=== PATIENT | male | born 1965 | race African-American/Black ===

== ENCOUNTER 2019-02-21 08:32 | Outpatient (CLI) | payer BC ==
[~2019-02-21] VITALS: Ht 180.3 cm; Wt 91.4 kg
--- NOTE | ~2019-02-21 | HEMODYNAMI ---
PATIENT:VIANEY HARGROVE MEDICAL RECORD: [id number] : 65 LOCATION:[facility] ADMISSION DATE: 02/21/19 Generatedon:02/21/201911:01 Patient name: VIANEY HARGROVE Patient #: [id number] SSN: D OB: 1965 Date of study: 02/21/2019 Page: Of Hemodynamic Procedure Report Patient Data Patient Demographics Procedure consent was obtained First Name: VIANEY Gender: Male Last Name: BEENA : 1965 Patient #: [id number] Age: 54 year(s) Race: Black Additional ID: [id number] Contact details Address: [place] [address] State: [place] City: [place] Zip code: [address] Past Medical History Allergies Allergen Reaction Date Comments Reported Other allergy 02/21/2019 [facility] Admission Admission Data Admission Date: 02/21/2019 Admission Time: 8:32 Arrival Date: 02/21/2019 Arrival Time: 0:00 Admit Source: Other Insurance Payor: Private health insurance [facility] #: [id number] Height (in.): 70.87 BSA: 2.11 (m2) Height (cm.): 180 BMI: 28.09 (kg/m2) Weight (lbs.): 200.62 Weight (kg.): 91 Lab Results Lab Result Date: 02/21/2019 Lab Result Time: 0:00 Biochemistry Name Units Result Min Max BUN mg/dl 17 --(---*)-- 7 18 Creatinine mg/dl 0.9 --(-*--)-- 0.6 1.3 eGFR ml/min 90 --(*---)-- 90 120 AM CBC Name Units Result Min Max Hemoglobin g/dl 14.9 --(-*--)-- 13.5 17.5 Procedure Procedure Types Cath Procedure Diagnostic Procedure LHC LH w/Coronaries Sedation Charges Moderate Sedation up to 15 minutes Procedure Description Procedure Date Procedure Date: 02/21/2019 Procedure Start Time: 10:43 Procedure End Time: 10:58 Procedure Staff Name Function Fletcher Kennedy MD Performing Physician Yeimy Rivers RT Monitor Josefina Henry RT Monitor Jenifer Dwyer RN Nurse Sugar Ugarte RT Scrub Indication Angina Procedure Data Cath Procedure Fluoroscopy Diagnostic fluoroscopy Total fluoroscopy Time: 2.5 time: 2.5 min min Diagnostic fluoroscopy Total fluoroscopy dose: 311 dose: 311 mGy mGy Contrast Material Contrast Material Type Amount (ml) Isovue 300 38 Entry Location Entry Primary Successful Side Size Upsize Upsize Entry Closure Morejon ccessful Closure Location (Fr) 1 (Fr) 2 (Fr) Remarks Device Remarks Radial Right 6 Fr Mechanical artery Short Compression Estimated blood loss: 5 ml Diagnostic catheters Device Type Used For End Catheter Placement DIAGNOSTIC Leroy 110cm 5 Procedure Fr catheter ([id number]) DIAGNOSTIC AR2 MOD 5 Fr Procedure catheter ([id number]) Procedure Complications No complications Procedure Medications Medication Administration Route Dosage Oxygen etCO2 Nasal cannula 2 l/min Lidocaine 2% added to field 20 Heparin Flush Bag added to field 2 bags (1000units/500ml NS) 0.9% NaCl I.V. 100 ml/hr Radial Cocktail I.A. 1 syringe (Verapamil 2mg/Nitro 400mcg/Heparin 1500units) Versed I.V. 2 mg Fentanyl I.V. 100 mcg Versed I.V. 1 mg Fentanyl I.V. 50 mcg Mechanical Ventricular Support IABP: Other mechanical ventricular support: Hemodynamics Rest BSA: 2.11 (m2) HGB: 14.9 (g/dl) O2 Consumption: Estimated: 235.6 (ml/min) O2 Con sumption indexed: Estimated:111.66 (ml/min/m) Heart Rate: 51 (bpm) Snapshots Pre Cath Intra NCS Post Cath Vital Signs Time Heart Resp SPO2 etCO2 NIBP (mmHg) Rhythm Pain Sedation Rate (ipm) (%) (mmHg) Status Level (bpm) 10:33:35 52 19 97 39.8 138/82(99) NSR 0 (11) 10(A) , No pain 10:37:39 53 18 96 39.8 120/79(101) NSR 0 (11) 10(A) , No pain 10:41:53 51 17 95 39.8 131/72(106) NSR 0 (11) 9(A) , No pain 10:46:52 50 16 95 40.6 135/75(93) NSR 0 (11) 9(A) , No pain 10:51:04 57 16 93 39.8 107/65(86) NSR 0 (11) 10(A) , No pain 10:55:14 52 7 95 40.6 125/71(98) NSR 0 (11) 10(A) , No pain Medications Time Medication Route Dose Verified Delivered Reason Notes Effectiveness by by 10:33:34 Oxygen etCO2 2 l/min Fletcher Burgess used for Nasal Brent Dwyer RN procedure cannula 10:33:41 Lidocaine 2% added 20ml Fletcher Bynum for local to vial Brent Kennedy MD anesthetic field 10:33:47 Heparin Flush added 2 bags Fletcher Bynum used for Bag to Brent Kennedy MD procedure (1000units/500ml field NS) 10:33:59 0.9% NaCl I.V. 100 Fletcher Burgess Per ml/hr Brent Dwyer RN physician 10:37:28 Versed I.V. 2 mg Fletcher Burgess for sedation Brent Dwyer RN 10:37:35 Fentanyl I.V. 100 mcg Fletcher Burgess for sedation Brent Dwyer RN 10:46:40 Radial Cocktail I.A. 1 Fletcher Bynum for (Verapamil syringe Brent Kennedy MD vasodilation 2mg/Nitro 400mcg/Heparin 1500units) 10:49:01 Versed I.V. 1 mg Fletcher Burgess for sedation Brent Dwyer RN 10:49:05 Fentanyl I.V. 50 mcg Fletcher Burgess for sedation Brent Dwyer RN Procedure Log Time Note 10:15:31 Diagnostic Cath Status : Elective 10:17:00 Indication : Angina 10:17:07 Admit Source: Other 10:17:13 ACC Patient presents with Stable Angina CCS Anginal Class 1--Ordinary physical activity does not cause angina, angina occurs with strenuos, rapid, or prolonged activity.. 10:17:19 Procedure Status Elective Heart Cath (OP). 10:17:23 Jenifer Dwyer RN sent for patient. Start room use. 10:17:26 Time tracking: Regular hours (M-F 7:00 - 5:00) 10:17:32 Plan of Care:Hemodynamics will remain stable., Cardiac rhythm will remain stable., Comfort level will be maintained., Respiratory function will remain adequate., Patient/ family verbilizes understanding of procedure., Procedure tolerated without complication., Recovers from procedure without complications.. 10::31 Lab Result : eGFR AM 90 ml/min 10::31 Lab Result : Hemoglobin 14.9 g/dl 10:: Lab Result : BUN 17 mg/dl 10:: Lab Result : Creatinine 0.9 mg/dl 10::46 Arrival Date: 02/21/2019 12:00:00 AM 10:21:27 Insurance Payor : Private health insurance 10:21:39 Patient Height : 70.87 inches 10::46 Patient Weight : 200.62 lbs 10:22:11 IABP : 10:22:12 Other mechanical ventricular support: 10:23:49 Informed consent obtained and on chart 10:24:06 Patient received from Pre/Post Procedure Room to CCL 1 Alert and oriented. Tansferred to table in Supine position. 10:24:09 Warm blankets applied, and milind hugger turned on for patient comfort. 10:24:10 Correct patient and procedure confirmed by team. 10:24:14 ECG and BP/O2 sat monitors applied to patient. 10:32:30 Vital chart was started 10:32:56 Baseline sample Acquired. 10:33:13 Rhythm: sinus bradycardia 10:33:17 Full Disclosure recording started 10:33:18 - 10:33:26 H&P Date Dictated: 02/21/2019 H&P Addendum completed by physician on da y of procedure. (MUST COMPLETE FOR ALL OUTPATIENTS), New H&P dictated by physician.. 10:33:29 Pre-procedure instructions explained to patient. 10:33:30 Pre-op teaching completed and patient verbalized understanding. 10:33:34 Oxygen 2 l/min etCO2 Nasal cannula was administered by Jenifer Dwyer RN; used for procedure; Verbal order read back and verified. 10:33:41 Lidocaine 2% 20ml vial added to field was administered by Fletcher Kennedy MD; for local anesthetic; Verbal order read back and verified. 10:33:46 Family in waiting room. 10:33:47 Heparin Flush Bag (1000units/500ml NS) 2 bags added to field was administered by Fletcher Kennedy MD; used for procedure; Verbal order read back and verified. 10:33:50 Patient NPO since Midnight. 10:33:59 0.9% NaCl 100 ml/hr I.V. was administered by Jenifer Dwyer RN; Per physician; Verbal order read back and verified. 10:34:05 Patient allergic to Other allergySHRIMP 10:34:11 Is the patient allergic to Iodine/contrast media? No. 10:34:14 Was the patient premedicated? Yes 10:34:17 Is patient on blood thinner?No 10:34:21 Patient diabetic? No. 10:34:23 If diabetic: On Metformin? No 10:34:27 ----Pre-sedation anethsthesia assessment.---- 10:34:34 Snore? No 10:34:36 Sleep apnea? No 10:34:40 Deviated septum? No 10:34:42 Opens mouth fully? Yes 10:34:44 Sticks out tongue? Yes 10:34:58 Airway obstruction? Yes ASTHMA 10:35:02 Dentures? No ? 10:35:26 Modified Glen's test Ulnar < 7 seconds 10:35:44 Patient pain scale 0/10 ?. 10:35:55 IV patent on arrival in left hand with 0.9% NaCl at KVO. 10:36:01 Pre procedure: right dorsailis pedis pulse 2+ Normal; easily identifiable; not easily obliterated 10:36:06 Pre procedure: left dorsailis pedis pulse 2+ Normal; easily identifiable; not easily obliterated 10:36:18 Lab results completed and on chart. 10:36:29 Right Radial & Right Groin area was prepped with chlora-prep and draped in sterile fashion 10:36:32 Alarms reviewed by R. N. 10:36:34 Sharps counted by scrub and verified by R.N. 10:36:39 Physician arrived 10:36:40 --------ALL STOP TIME OUT------ 10:36:40 Final Timeout: patient, procedure, and site verified with staff and physician. All members of the team are in agreement. 10:36:43 Right Radial & Right Groin site verified by team. 10:36:49 Fire Safety Assessment: A--An alcohol-based skin anteseptic being used preoperatively., C--Open oxygen or nitrous oxide is being used., D--An ESU, laser, or fiber-optic light is being used. 10:37:03 Physical assessment completed. ASA score P 2 - A patient with mild systemic disease as per Fletcher Kennedy MD. 10:37:17 1) 90+ Normal kidney functon but urine findings or structural abnormalities or genetic trait point to kidney disease. 10:37:25 Maximum allowable contrast dose (3.7 X eGFR X 0.75)250 ml. 10:37:28 Versed 2 mg I.V. was administered by Jenifer Dwyer RN; for sedation; Verbal order read back and verified. 10:37:31 Sedation plan: IV Moderate Sedation Medication:Versed, Fentanyl 10:37:35 Fentanyl 100 mcg I.V. was administered by Jenifer Dwyer RN; for sedation; Verbal order read back and verified. 10:38:35 Use device set Radial Dx or PCI 10:38:38 ACIST Syringe (12217) opened to sterile field. 10:38:39 Medline Cath Pack ([id number]) opened to sterile field. 10:38:39 Bag Decanter () opened to sterile field. 10:38:40 ACIST Hand Control (90719) opened to sterile field. 10:38:41 ACIST Manifold (99725) opened to sterile field. 10:38:42 Tegaderm 4 x 4 (1626W) opened to sterile field. 10:38:45 MBrace Wrist Support ([id number]) opened to sterile field. 10:38:49 EMERALD Guide Wire (625-785) opened to sterile field. 10:38:50 SHEATH 6FR RAIN (9797621) opened to sterile field. 10:39:51 Zero performed for pressure channel P1 10:40:57 ACCPatient has been prescribed/administered the following anti-anginal medication within the last 2 weeks: None 10:43:42 Procedure started. 10:43:50 Local anesthetic to right radial artery with Lidocaine 2% by Fletcher Kennedy MD.INITIAL ACCESS ONLY 10:44:57 A 6 Fr Short sheath was inserted into the Right Radial artery 10:45:58 A DIAGNOSTIC Leroy 110cm 5 Fr catheter ([id number]) was advanced over the wire and used for Procedure. 10:46:40 Radial Cocktail (Verapamil 2mg/Nitro 400mcg/Heparin 1500units) 1 syring e I.A. was administered by Fletcher Kennedy MD; for vasodilation; Verbal order read back and verified. 10:47:33 LV angiography performed. 10:47:45 LV gram done using KEENAN 10:47:51 Injector settings: Ml/sec: 5, Volume: 15, 10:47:58 EF : 60 % 10:48:33 LCA angiography performed. 10:49:01 Versed 1 mg I.V. was administered by Jenifer Dwyer RN; for sedation; Verbal order read back and verified. 10:49:05 Fentanyl 50 mcg I.V. was administered by Jenifer Dwyer RN; for sedation; Verbal order read back and verified. 10:49:31 Injector settings: Ml/sec: 3, Volume: 5, 10:50:15 RCA angiography performed. 10:50:28 Catheter removed. 10:50:53 A DIAGNOSTIC AR2 MOD 5 Fr catheter ([id number]) was advanced over the wire and used for Procedure. 10:51:38 RCA angiography performed. 10:51:46 ACCDominant side:Left 10:51:52 Injector settings: Ml/sec: 3, Volume: 5, 10:52:14 Procedure ended.(Physican Out) 10:52:40 ZEPHYR REGULAR TR BAND (477046) opened to sterile field. 10:52:57 Sheath removed intact; hemostasis achieved with Mechanical Compression to the Right Radial artery. 10:53:09 Fluoroscopy time 02.50 minutes. 10:53:17 Fluoroscopy dose: 311 mGy 10:53:17 Flurop Dose total: 311 10:53:27 Dose Area Product 91046 mGy/cm. 10:53:34 Contrast amount:Isovue 300 38ml. 10:53:37 Maximum allowable dose exceeded? No. 10:53:38 Sharps counted by scrub and verified by R.N. 10:53:47 [place] band inflated with 5cc of air. 10:53:50 Insertion/operative site no bleeding no hematoma. 10:53:53 Post Procedure Pulses reassessed and unchanged 10:54:05 Post-procedure physical assessment completed. ASA score P 2 - A patient with mild systemic disease as per Fletcher Kennedy MD. 10:54:16 Post procedure rhythm: unchanged. 10:55:32 Estimated blood loss: 5 ml 10:55:37 Post procedure instruction explained to patient.Patient verbalizes understanding. 10:55:38 Patient needs reinforcement of post procedure teaching. 10:56:57 Procedure type changed to Cath procedure, Diagnostic procedure, LHC, LH C w/Coronaries, Sedation Charges, Moderate Sedation up to 15 minutes 10:57:27 Procedure and supply charges have been captured, reviewed, submitted an d are correct. 10:58:20 Procedure Complication : No complications 10:58:24 Vital chart was stopped 10:58:40 [facility] Findings: mild to moderate CAD (<70%) 10:58:46 Operative report dictated upon procedure completion. 10:58:47 See physician's report for complete and final results. 10:58:49 Report given to Pre/Post Procedure Room. 10:58:52 Patient transfered to Pre/Post Procedure Room with Stretcher. 10:58:56 Procedure ended. 10:58:56 Full Disclosure recording stopped 10:59:32 End room use (Document Last) Device Usage Item Name Manufacture Quantity Catalog Hospital Part Current Minima l Lot# / Number Charge Number Stock Stock Serial# Code ACIST Acist 1 01659 574969 135500 570208 20 Syringe Medical (08735) Systems Inc Medline Medline 1 [id number] 793593 04053 849901 5 Cath Pack ([id number]) Bag Microtek 1 188788 00717 327376 5 Decanter Medical Inc. () ACIST Hand Acist 1 14160 334613 357994 937193 5 Control Medical (41164) Systems Inc ACIST Acist 1 98200 263210 630795 905135 5 Manifold Medical (47171) Systems Inc Tegaderm 4 3M 1 1626W 118135 871037 673577 5 x 4 (1626W) MBrace Advanced 1 140-0250-00 810676 53942 711616 5 Wrist Vascular Support Dynamics ([id number]) [facility] 1 502-455 656752 037684 647663 5 Guide Wire [facility] (590-725) SHEATH 6FR Cardinal 1 6151476 105534 1271133 006969 5 [facility] (4316634) DIAGNOSTIC Terumo 1 40-5013 846717 556794 460237 5 Leroy 110cm 5 Fr catheter (720326) DIAGNOSTIC Cardinal 1 332285M 514130 977938 906187 20 AR2 MOD 5 Health Fr catheter (047269E) ZEPHYR Cardinal 1 497516 889857 4335970 320559 5 REGULAR TR Health BAND (687551) Signature Audit [place] Stage Time Signature Unsigned Intra-Procedure 02/21/2019 Josefina 11:00:05 AM Elaine RT(R) (CV) Intra-Procedure 02/21/2019 Jenifer Dwyer RN 11:00:39 AM Intra-Procedure 02/21/2019 Fletcher Kennedy 11:01:09 AM [facility] [address] [place] [address]
[2019-02-21] MEDS ORDERED: ALBUTEROL1.25 MG/3 INH (08:46)
[2019-02-21 09:05] VITALS: BP 129/71; Ht 180.3 cm; Wt 91.4 kg
[2019-02-21 09:18] LABS: BASOPHILS 0.5 % (0-2); EOSINOPHILS 9.8 % (0-7); HEMATOCRIT 43.4 % (42.0-54.0); HEMOGLOBIN 14.9 g/dL (13.5-17.5); IMMATURE GRANULOCYTES 0.2 % (0-5); LYMPHOCYTES 30.9 % (15-50); MCH 31.1 pg (26.0-34.0); MCHC 34.3 g/dL (31.0-37.0); MCV 90.6 fL (80.0-100.0); MEAN PLATELET VOLUME 10.5 fL (7.4-10.4); MONOCYTES 7.6 % (2-11); PLATELET COUNT 284 10x3/uL (130-400); RBC 4.79 10x6/uL (4.20-6.10); RDW 13.5 % (11.5-14.5); WBC 6.4 10x3/uL (4.8-10.8)
[2019-02-21 09:32] LABS: ALT (SGPT) 20 U/L (10-68); CALC OSMOLALITY 285 mosm/kg (275-300); CALCIUM 8.5 mg/dL (8.5-10.1); CARBON DIOXIDE 27.1 mmol/L (21.0-32.0); CHLORIDE - SERUM 108 mmol/L (98-107); CHOLESTEROL, TOTAL 137 mg/dL (0-200); CREATININE - SERUM 0.9 mg/dL (0.6-1.3); GLUCOSE 87 mg/dL (74-106); HDL CHOLESTEROL 45 mg/dL (32-96); LDL CHOLESTEROL 81 mg/dL (0-100); LDL-HDL RATIO 1.8 ratio (1.5-3.5); POTASSIUM - SERUM 4.5 mmol/L (3.5-5.1); SODIUM 143 mmol/L (136-145); TRIGLYCERIDE 58 mg/dL (30-200); UREA NITROGEN 17 mg/dL (7-18); eGFR NON AFRICAN AMERICAN > 90 mL/min (90-120)
--- NOTE | 2019-02-21 11:13 | NUR ---
PT RECEIVED VIA STRETCHER FROM REMODELER POST PROCEDURE. PT SLEEPING BUT VERBALLY AROUSABLE. CARDIAC MONITORS PLACED ON PT. HR 50, BP 118/71, RR 9, O2 SAT 96 ON ROOM AIR. ZYPHER BAND AND IMMOBILIZER TO R WRIST, DRESSING CDI NO BLEEDING OR HEMATOMA NOTED. ARM PINK AND WARM, CAP REFILL BRISK. DR MITCHELL AT TALKING W REGARDING PLAN OF CARE. IV PATENT INFUSING VIA ORDERS TO L ARM. CALL LIGHT IN REACH
--- NOTE | 2019-02-21 11:41 | NUR ---
PT CONTINUES SLEEPING, Z BAND AND IMMOBILIZER IN PLACE, NO BLEEDING OR SWELLING NOTED. ARM PINK AND WARM, CAP REFILL BRISK. VSS. AT BEDSIDE, CALL LIGHT IN REACH
--- NOTE | 2019-02-21 12:03 | NUR ---
PT DOING WELL, ZBAND AND IMMOBILIZER IN PLACE, DRESSING CDI NO BLEEDING OR HEMATOMA NOTED. 3CC AIR REMOVED W/O BLEEDING NOTED. PT DENIES PAIN OR DISCOMFORT. HOB ELEVATED, SANDWICH AND DRINK SERVED. REMAINS AT BEDSIDE, VSS.
--- NOTE | 2019-02-21 12:33 | NUR ---
PT TOLERATED PO FOOD AND FLUIDS W/O NAUSEA. 3 ADD'L CC AIR REMOVED FROM ZBAND W/O BLEEDING OR SWELLING. HR 50, BP 127/69, RR 10. PT DENIES PAIN OR NEEDS. CALL LIGHT IN REACH
--- NOTE | 2019-02-21 12:55 | NUR ---
DISCHARGE INSTRUCTIONS REVIEWED W PT AND , BOTH VERBALIZE UNDERSTANDING. IV DC'D W CATH INTACT, CARDIAC MONITORS REMOVED. REMAINING AIR REMOVED FROM Z BAND W/O BLEEDING OR HEMATOMA. PT UP TO DRESS FOR DISCHARGE W ASSIST FROM
--- NOTE | 2019-02-21 13:00 | NUR ---
Z BAND REMOVED, 2X2 AND TEGADERM DRESSING APPLIED TO WRIST. NO BLEEDING OR HEMATOMA NOTED. PT DISCHARGED VIA WC TO WAITING IN PRIVATE VEHICLE. PT HAD ALL BELONGINGS AND DISCHARGE INSTRUCTIONS IN HAND
--- NOTE | 2019-02-24 11:10 | OP ---
PATIENT NAME: VIANEY HARGROVE MEDICAL RECORD: [id number] :65 LOCATION:D.CAT ADMISSION DATE: SURGEON: RIGO MITCHELL MD DATE OF OPERATION: 02/21/2019 PROCEDURES: 1. Left heart catheterization. 2. Selective coronary angiography. 3. Left ventriculogram. INDICATION: Angina, coronary artery disease, abnormal nuclear stress test. PROCEDURE IN DETAIL: After informed consent was obtained and after a detailed description of the risks, benefits as well as alternative therapies, the patient elected to proceed with angiogram and heart catheterization. The right radial area was prepped and draped in normal sterile fashion. Right radial artery was cannulated via modified Seldinger technique with placement of 5-Kyrgyz sheath. All catheters exchanged through this sheath. FINDINGS: Left ventriculogram was performed in standard 30-degree KEENAN view, reveals good cardiac wall motion, ejection fraction estimated 60%. SELECTIVE CORONARY ANGIOGRAPHY: Left main, left anterior descending, left circumflex, right coronary artery are all smooth-walled vessels with no angiographic evidence of coronary artery disease. OVERALL IMPRESSION: 1. No angiographic evidence of coronary artery disease. 2. Normal left heart pressures. 3. Normal left ventricular systolic function. Chest pain is noncardiac in etiology. Stress test is false positive, no other cardiac workup or treatment is necessary. TRANSINT:[id number] Voice Confirmation ID: [id number] DOCUMENT ID: [id number] RIGO MITCHELL MD at 1110 CC: [id number] DICTATION DATE: 02/21/19 1056 [employer] DEAN: 02/21/19 1118 DEP CLI 02/21/19 [place] [id number]
== END 2019-02-21 13:00 | disposition home or self-care (01) ==
LOC: D.CATH 08:32
PROVIDERS: ATTEND Internal Medicine Interventional Cardiology
DX: I25.110 Atherosclerotic heart disease of native coronary artery with unstable angina pectoris (principal); R94.30 Abnormal result of cardiovascular function study, unspecified; R06.02 Shortness of breath